=== PATIENT | male | born 1985 | race Caucasian/White ===

== ENCOUNTER 2021-11-28 12:45 | Emergency (ER) | payer SELFPAY ==
[~2021-11-28] VITALS: Ht 182.9 cm; Wt 79.0 kg
[2021-11-28 13:16] VITALS: BP 117/77
[2021-11-28 13:30] VITALS: BP 107/76
[2021-11-28] MEDS ORDERED: STROMECTOL3 MG PO (13:32)
[2021-11-28] MEDS ORDERED: KETOCONAZOLE2 % EX (13:46)
[2021-11-28 14:00] VITALS: BP 116/78
== END 2021-11-28 14:19 | disposition home or self-care (01) | DRG 603 ==
LOC: ED 12:45
DX: A00-B99 Certain infectious and parasitic diseases (principal); B35.3 Tinea pedis; B35.4 Tinea corporis; Z59.00 Homelessness unspecified

== ENCOUNTER 2021-12-16 04:35 | Emergency (ER) | payer SELFPAY ==
[~2021-12-16] VITALS: Ht 182.9 cm; Wt 79.0 kg
[~2021-12-16 04:35] MED LIST: KETOCONAZOLE2 % EX; STROMECTOL3 MG PO
[2021-12-16 04:43] VITALS: BP 123/84
[2021-12-16 04:45] VITALS: BP 122/78
[2021-12-16] MEDS ORDERED: KEFLEX500 MG PO (05:41)
[2021-12-16] MEDS ORDERED: LORTAB 1010 MG PO (05:41)
[2021-12-16] MEDS ORDERED: BACTRIM DS1 TAB PO (05:41)
[2021-12-16 05:48] VITALS: BP 122/78
== END 2021-12-16 06:10 | disposition home or self-care (01) | DRG 603 ==
LOC: ED 04:35
DX: L02.511 Cutaneous abscess of right hand (principal)

== ENCOUNTER 2021-12-21 16:18 | Emergency (ER) | payer SELFPAY ==
[~2021-12-21] VITALS: Ht 182.9 cm; Wt 81.8 kg
[~2021-12-21 16:18] MED LIST changes: +BACTRIM DS1 TAB PO; +KEFLEX500 MG PO; +LORTAB 1010 MG PO
[2021-12-21 16:55] VITALS: BP 115/67
[2021-12-21 17:00] VITALS: BP 105/62
[2021-12-21] MEDS ORDERED: NAPROXEN500 MG PO (17:10)
[2021-12-21 17:15] VITALS: BP 109/59
[2021-12-21 17:30] VITALS: BP 114/62
== END 2021-12-21 17:35 | disposition home or self-care (01) | DRG 951 ==
LOC: ED 16:18
DX: Z48.00 Encounter for change or removal of nonsurgical wound dressing (principal)

== ENCOUNTER 2022-06-17 16:12 | Emergency (ER) | payer SELFPAY ==
[~2022-06-17] VITALS: Ht 182.9 cm; Wt 76.0 kg
[~2022-06-17 16:12] MED LIST changes: +NAPROXEN500 MG PO
[2022-06-17 16:37] VITALS: BP 142/98
[2022-06-17 16:45] VITALS: BP 114/73
[2022-06-17 17:01] VITALS: BP 112/74
[2022-06-17] MEDS ORDERED: OMEPRAZOLE20 MG PO (17:11)
[2022-06-17 17:15] VITALS: BP 132/95
[2022-06-17 17:30] VITALS: BP 127/82
[2022-06-17 17:45] VITALS: BP 129/78
== END 2022-06-17 18:01 | disposition home or self-care (01) | DRG 897 ==
LOC: ED 16:12
DX: F15.13 Other stimulant abuse with withdrawal (principal); R10.13 Epigastric pain; F17.200 Nicotine dependence, unspecified, uncomplicated

== ENCOUNTER 2022-09-14 22:13 | Emergency (ER) | payer SELFPAY ==
[~2022-09-14] VITALS: Ht 182.9 cm; Wt 84.8 kg
[~2022-09-14 22:13] MED LIST changes: +OMEPRAZOLE20 MG PO
[2022-09-14 22:25] VITALS: BP 113/80
[2022-09-14 22:30] VITALS: BP 107/72
[2022-09-14 22:45] VITALS: BP 108/70
[2022-09-14 23:00] VITALS: BP 114/76
[2022-09-14] MEDS ORDERED: VOLTAREN - GENE75 MG PO (23:14)
[2022-09-14 23:15] VITALS: BP 109/80
[2022-09-14 23:17] VITALS: BP 109/80
== END 2022-09-14 23:19 | disposition home or self-care (01) | DRG 563 ==
LOC: ED 22:13
DX: S83.92XA Sprain of unspecified site of left knee, initial encounter (principal); F17.200 Nicotine dependence, unspecified, uncomplicated; X58.XXXA Exposure to other specified factors, initial encounter

== ENCOUNTER 2023-10-25 17:30 | Emergency (ER) | payer SELFPAY ==
[~2023-10-25] VITALS: Ht 182.9 cm; Wt 81.0 kg
[~2023-10-25 17:30] MED LIST changes: +METHOCARBAMOL500 MG PO; +VOLTAREN - GENE75 MG PO
[2023-10-25 17:37] VITALS: BP 126/92
[2023-10-25] MEDS ORDERED: TYLENOL # 31 TA1 PO (17:50)
[2023-10-25] MEDS ORDERED: AMOX/K CLAV875 M1 PO (17:50)
[2023-10-25] MEDS ORDERED: HYDROcodone 5 MG/Acetaminophen 325 MG/COMBO PO ONE (17:55)
[2023-10-25 18:00] VITALS: BP 142/90
== END 2023-10-25 18:00 | disposition home or self-care (01) | DRG 159 ==
LOC: ED 17:30
DX: K04.7 Periapical abscess without sinus (principal); K02.9 Dental caries, unspecified; S02.5XXA Fracture of tooth (traumatic), initial encounter for closed fracture; X58.XXXA Exposure to other specified factors, initial encounter; K08.409 Partial loss of teeth, unspecified cause, unspecified class; Z72.0 Tobacco use

== ENCOUNTER 2023-10-26 08:31 | Emergency (ER) | payer OTHER ==
[~2023-10-26] VITALS: Ht 182.9 cm; Wt 68.0 kg
[~2023-10-26 08:31] MED LIST changes: +AMOX/K CLAV875 M1 PO; +TYLENOL # 31 TA1 PO
[2023-10-26 08:36] VITALS: BP 130/89
[2023-10-26] MEDS ORDERED: ACETAMINOPHEN 500 MG TAB PO ONE (08:50)
[2023-10-26] MEDS ORDERED: SODIUM CHLORIDE 0.9% 1,000 ML IV ONE ×2 (08:50)
[2023-10-26] MEDS ORDERED: MORPHINE SULFATE 4 MG/ML VIAL IV ONE (08:55)
[2023-10-26] MEDS ORDERED: ONDANSETRON HCl 4 MG/2 ML SDV IV ONE (08:55)
[2023-10-26 09:00] VITALS: BP 126/94
[2023-10-26 09:30] VITALS: BP 129/86
[2023-10-26 10:00] VITALS: BP 119/79
== END 2023-10-26 10:18 | disposition home or self-care (01) | DRG 159 ==
LOC: ED 08:31
DX: K02.9 Dental caries, unspecified (principal); Z72.0 Tobacco use